=== PATIENT | female | born 1945 | race Caucasian/White ===

== ENCOUNTER 2017-04-07 12:44 | Emergency (ER) | payer MEDICARE ==
[2017-04-07] MEDS ORDERED: NS 0.9% 1000 ML* 1,000 ML IV ONE (13:33)
[2017-04-07 14:07] LABS: Hematocrit 41 % (35-47); Hemoglobin 13.6 g/dl (12.0-16.0); Mean Corpuscular HGB Conc 33 g/dl (31-36); Mean Corpuscular Hemoglobin 31 pg (27-31); Mean Corpuscular Volume 93 fL (80-97); Mean Platelet Volume 9 um3 (7.4-10.4); Red Blood Count 4.42 10^6/ul (4.0-5.4); Red Cell Distribution Width 14 % (10.5-15); White Blood Count 5.6 10^3/ul (3.5-10.8)
--- NOTE | 2017-04-07 14:16 | RAD ---
INDICATION: Cough and fever COMPARISON: September 25, 2013 TECHNIQUE: PA and lateral dual-energy views were obtained. FINDINGS: Bones/Soft Tissues: There are no acute bony findings. Cardiomediastinal: The cardiomediastinal silhouette is normal. Lungs: There are no infiltrates. Pleura: There are no pleural effusions. Other: None IMPRESSION: NO ACTIVE DISEASE
[2017-04-07 14:22] LABS: Albumin 3.7 g/dL (3.2-5.2); BUN/Creatinine Ratio 20.9 (8-20); C Reactive Protein 152.45 mg/L (< 5.00); Calcium 9.2 mg/dL (8.6-10.3); EGFR African American 78.4 (>60); EGFR Non-African American 60.9 (>60); Globulin 3.4 g/dL (2-4); Total Bilirubin 0.6 mg/dL (0.2-1.0); Total Protein 7.1 g/dL (6.4-8.9)
[2017-04-07 14:26] LABS: Potassium 4.1 mmol/L (3.5-5.0)
--- NOTE | 2017-04-07 15:18 | RAD ---
HISTORY: Headache COMPARISONS: None TECHNIQUE: Multiple contiguous axial CT scans were obtained of the head without intravenous contrast. FINDINGS: HEMORRHAGE/INFARCT: There is no hemorrhage or acute infarct. MASSES/SHIFT: There is no mass or shift. EXTRA-AXIAL SPACES: There are no extra-axial fluid collections. SULCI AND VENTRICLES: The sulci and ventricles are normal in size and position for the patient's stated age. CEREBRUM: There are no focal parenchymal abnormalities. BRAINSTEM: There are no focal parenchymal abnormalities. CEREBELLUM: There are no focal parenchymal abnormalities. VESSELS: There is calcification of the cavernous segments of the internal carotid arteries bilaterally. PARANASAL SINUSES: The paranasal sinuses are clear. ORBITS: The orbits are unremarkable. BONES AND SOFT TISSUE: No bone or soft tissue abnormalities are noted. OTHER: None IMPRESSION: NO ACUTE INTRACRANIAL PATHOLOGY.
--- NOTE | 2017-04-07 15:20 | RAD ---
HISTORY: Headache, neck pain COMPARISONS: None TECHNIQUE: Multiple contiguous axial CT scans were obtained of the cervical spine without intravenous contrast, with coronal and sagittal multiplanar reformations. FINDINGS: BRAIN: The visualized brain is unremarkable CENTRAL CANAL: Evaluation of the central canal is limited on CT technique; however, there is no obvious canalicular mass or epidural hemorrhage. ALIGNMENT: There is straightening of the cervical lordosis. VERTEBRAL BODIES: There is multilevel anterolateral marginal osteophyte formation with reactive end plate changes most pronounced at C4-C5 and C5-C6. JOINTS: There is multilevel uncovertebral and facet hypertrophy. 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 AXIAL IMAGES: C2-C3: There is no osseous neural foraminal narrowing or central canal stenosis. C3-C4: There is no osseous neural foraminal narrowing or central canal stenosis. C4-C5: There is no osseous neural foraminal narrowing or central canal stenosis. C5-C6: There is mild bilateral neural foraminal narrowing. There is no osseous central canal stenosis. C6-C7: There is bilateral facet hypertrophy. There is moderate bilateral neural foraminal narrowing. There is no significant central canal stenosis C7-T1: There is no osseous neural foraminal narrowing or central canal stenosis. SOFT TISSUES: The visualized soft tissues of the neck are unremarkable. The prevertebral fat stripe is preserved. OTHER: None. IMPRESSION: STRAIGHTENING OF THE CERVICAL LORDOSIS. DEGENERATIVE DISC DISEASE AND OSTEOARTHRITIS, MOST PRONOUNCED AT C5-C6 AND C6-C7.
[2017-04-07 15:36] LABS: Erythrocyte Sed Rate 45 mm/Hr (0-40)
[2017-04-07 16:41] LABS: Urine Bacteria Absent (Absent); Urine Bilirubin Negative (Negative); Urine Glucose Negative (Negative); Urine Nitrite Negative (Negative)
[2017-04-07 17:12] VITALS: BP 124/66
--- NOTE | 2017-04-07 17:25 | ED ---
Maria Esther Pozo Thomas, scribed for Bharti Jenkins MD on 04/07/17 at 1308 . Headache - HPI Summary HPI Summary: The pt is a 72 y/o F accompanied by her presenting to the ED c/o head and neck pain located at the back of her neck that began 5 days ago. She was seen two days ago at Urgent Care and diagnosed with fever and acute pyelonephritis. She was called by [facility] urgent care and referred to the ED because her urine culture was negative. Two days ago her temperature was 101.3. She is unsure when that fever began. She is afebrile in the ED. She denies a fever yesterday and today. She is still on Ciprofloxacin, which was prescribed 500 mg PO BID. Pt has a hx of sarcoidosis but has not been on steroids for years. The pt rates the pain 7/10. The pain is alleviated and alleviated by nothing. Pt does not have any temporal pain. Pt additionally c/o neck pain, fever (afebrile in the ED, denies a fever yesterday), dark urine, decreased appetite, chronic leg pain, back pain, and productive cough (clear). Pt denies myalgia, CP, hematuria, and dysuria. The pt denies Hx of a blood clot, CVA, TX, and chronic HERNADEZ. She is not on any daily medications. PMHx: HLD, UTI, osteopenia , sarcoidosis (10 years ago). PSHx: bronchoscopy, mediastinoscopy. SHx: former smoker, occasional drinking. FHx: CAD. She does not take medication for her sarcoidosis. - History Of Current Complaint Chief Complaint: EDHeadache Stated Complaint: HEADACHES/SENT FROM [facility] Time Seen by Provider: 04/07/17 13:01 Hx Obtained From: Patient, Family/[employer] - Onset/Duration: Started days ago - 5 days, Still Present Currently Pain Is: Current Pain Scale(0-10)= - 7 Timing: Constant Character: Dull Location of Headache: Occipital, Other: - back of head and into neck Aggravating Factor: Nothing Allevating Factors: Nothing Associated Signs And Symptoms: Fever - febrile 2 days ago, afebrile yesterday and in the ED, Neck Pain, Other (Noted In Comments) - POS: dark urine, decreased appetite, chronic leg pain, back pain, productive cough (clear); NEG: myalgia, CP, dysuria, hematuria - Allergies/Home Medications Allergies/Adverse Reactions: Allergies Allergy/AdvReac Type Severity Reaction Status Date / Time Sulfa Antibiotics Allergy Unknown Unknown Verified 09/25/13 14:12 Reaction Details PMH/Surg Hx/FS Hx/Imm Hx Previously Healthy: No - sarcoidosis Cardiovascular History: Reports: Hx Hypercholesterolemia Respiratory History: Reports: Other Respiratory Problems/Disorders - Hx sarcoidosis History: Reports: Other Problems/Disorders - Hx UTI Musculoskeletal History: Reports: Other Musculoskeletal History - Hx osteopenia - Surgical History Surgery Procedure, Year, and Place: bronchoscopy, mediastinoscopy, cholecystectomy Infectious Disease History: Denies: Traveled Outside the [place] in Last 30 Days - Family History Known Family History: Positive: Cardiac Disease - Social History Occupation: Retired Alcohol Use: Occasionally Substance Use Type: Reports: None Hx Tobacco Use: Yes Smoking Status (MU): Former Smoker Review of Systems Positive: Fever - febrile 2 days ago, afebrile yesterday and today, Other Eyes: Negative ENT: Negative Cardiovascular: Negative Negative: Chest Pain Positive: Cough - productive, clear Gastrointestinal: Negative Positive: other - POS: dark urine. Negative: dysuria, hematuria Positive: Other - POS: neck pain, chronic leg pain, back pain. Negative: Myalgia Skin: Negative Positive: Headache Psychological: Normal All Other Systems Reviewed And Are Negative: Yes Physical Exam Triage Information Reviewed: Yes Vital Signs On Initial Exam: Initial Vitals Temp Pulse Resp BP Pulse Ox 97.6 F 103 18 131/77 100 04/07/17 12:45 04/07/17 12:45 04/07/17 12:45 04/07/17 12:45 04/07/17 12:45 Vital Signs Reviewed: Yes Appearance: Positive: Well-Appearing, Well-Nourished, Pain Distress Skin: Positive: Warm, Skin Color Reflects Adequate Perfusion, Other - Non-toxic appearing Head/Face: Positive: Normal Head/Face Inspection Eyes: Positive: Conjunctiva Clear ENT: Positive: Normal ENT inspection, Other - Neck is supple, moving neck well, good chin to chest, no spinal tenderness Neck: Positive: Supple, No Lymphadenopathy, Tenderness @ - bilat paraspinous muscles Respiratory/Lung Sounds: Positive: Clear to Auscultation, Breath Sounds Present , Other - no resp distress Cardiovascular: Positive: RRR, Pulses are Symmetrical in both Upper and Lower Extremities, Other - Brisk capillary refill. Negative: Murmur Abdomen Description: Positive: Nontender, No Organomegaly, Soft. Negative: Distended, Guarding, Splenomegaly Bowel Sounds: Positive: Present Musculoskeletal: Positive: Strength/ROM Intact. Negative: Edema Left, Edema Right, Other - NEG: spinal tenderness Neurological: Positive: Sensory/Motor Intact, Alert, Oriented to Person Place, Time, CN Intact II-III, Speech Normal, Other - Muscle tone normal; no pain with [id number], neg Kernig's and Brudzinski. Negative: Facial Droop, Focal Deficit @, Slurred Speech Psychiatric: Positive: Normal Diagnostics - Vital Signs Vital Signs Temp Pulse Resp BP Pulse Ox 04/07/17 12:45 97.6 F 103 18 131/77 100 - Laboratory Result Diagrams: 04/07/17 13:50 04/07/17 13:50 Lab Statement: Any lab studies that have been ordered have been reviewed, and results considered in the medical decision making process. - Radiology CXR Xray Interpretation: No Acute Changes - no active disease Radiology Interpretation Completed By: Radiologist - CT CT Brain CT Interpretation: No Acute Changes - no acute intracranial pathology CT Interpretation Completed By: Radiologist CT C-Spine CT Interpretation: No Acute Changes - STRAIGHTENING OF THE CERVICAL LORDOSIS. DEGENERATIVE DISC DISEASE AND OSTEOARTHRITIS, MOST PRONOUNCED AT C5-C6 AND C6- C7. CT Interpretation Completed By: Radiologist Re-Evaluation - Re-Evaluation Second Eval Re-Evaluation Time: 16:03 Change: Improved - Feels fine, giving a urine, wants to go home First Re-Eval Re-Evaluation Time: 13:57 Change: Improved Comment: She notes a shooting pain in her neck that has gone a way. She now rates her pain 4/10, and she declines pain meds. Third Eval Re-Evaluation Time: 17:00 - wants to go home Change: Improved Headache Course/Dx - Course Assessment/Plan: The pt is a 72 y/o F accompanied by her presenting to the ED c/o head and neck pain located at the back of her neck that began 5 days ago. She was seen two days ago at [facility] and diagnosed with fever and acute pyelonephritis. She was called by [facility] urgent care and referred to the ED because her urine culture was negateve. Two days ago her temperature was 101.3. She is unsure when that fever began. She is afebrile in the ED. She denies a fever yesterday and today. She is still on Ciprofloxacin, which was prescribed 500 mg PO BID. The pt rates the pain 7/10. The pain is alleviated and alleviated by nothing. Pt additionally c/o neck pain, fever ( afebrile in the ED, denies a fever yesterday), dark urine, decreased appetite, chronic leg pain, back pain, and productive cough (clear). Pt denies myalgia, CP , hematuria, and dysuria. The pt denies Hx of a blood clot, CVA, TX, and chronic HERNADEZ. She is not on any daily medications. PMHx: HLD, UTI, osteopenia, sarcoidosis (10 years ago). PSHx: bronchoscopy, mediastinoscopy, cholecystectomy SHx: former smoker, occasional drinking. FHx: CAD. She does not take medication for her sarcoidosis. CT Brain shows no acute intracranial pathology. CT C-Spine shows STRAIGHTENING OF THE CERVICAL LORDOSIS. DEGENERATIVE DISC DISEASE AND OSTEOARTHRITIS, MOST PRONOUNCED AT C5-C6 AND C6- C7.CXR reveals no active disease. Bloodwork shows Plt 138, Lymph % 24.5, [place] % 10.0, APTT 25.9, Chloride 100, Bun/Creatinine 20.9, AST 91, ALT 67, AlkPhos 150 , CRP 152.45, ESR 45. UA shows specific gravity 1.004, blood 2+, squamous cells present. Feels fine, giving urine sample, wants to go home. Re-eval at 13:56 showed improvement. Re-eval at 16:03 was pt feels fine, giving urine sample, and wants to go home. Patients medication reviewed this visit. Allergies noted. In the ED course the pt was given IV fluids. Patient is diagnosed with cephalgia, cervical strain, abnormal liver function tests. The pt is diagnosed with high blood pressure without a diagnosis of hypertension. Patient will be discharged with follow up from [facility] referral or definite follow up in the [facility] office (former pt of Dr. Gee, could not get in. ) Advised f/u within a week. Pt is agreeable with this plan. - Diagnoses Provider Diagnoses: Cephalgia, Cervical strain, Abnormal liver function tests, Elevated BP without diagnosis of hypertension, Thrombocytopenia, Hematuria Discharge - Discharge Plan Condition: Stable Disposition: HOME Patient Education Materials: Cervical Strain (ED), General Headache (ED), Hematuria (ED) Referrals: [facility] PHYSICIAN REFERRAL [Outside] - 2 Days Additional Instructions: Your labs tests were normal except for your liver function tests which are mildly elevated, your platelet count which is slightly low, and your markers for inflammation which are elevated (CRP and ESR). We have given you a copy of your labs. You will need further follow up within the next week for these abnormalities, but they are not an emergency condition at this time. The CT of your brain and cervical spine (neck) and chest xray were unremarkable. We have given you copies of these also. You may stop the Cipro. There was microscopic blood in your urine, but no sign of infection. You will want to have follow up for that as well. If you develop fever or new or worsening symptoms, you should return to the ER. The documentation as recorded by the Maria Esther colon Thomas accurately reflects the service I personally performed and the decisions made by , Bharti Jenkins MD.
== END 2017-04-07 17:11 | disposition home or self-care (01) ==
LOC: ED 12:44
DX: S16.1XXA Strain of muscle, fascia and tendon at neck level, initial encounter (principal); R51 Headache; R79.89 Other specified abnormal findings of blood chemistry; R03.0 Elevated blood-pressure reading, without diagnosis of hypertension; D69.6 Thrombocytopenia, unspecified; R31.9 Hematuria, unspecified; E78.5 Hyperlipidemia, unspecified; E78.00 Pure hypercholesterolemia, unspecified; Z88.2 Allergy status to sulfonamides; Z87.891 Personal history of nicotine dependence; X58.XXXA Exposure to other specified factors, initial encounter; Y92.9 Unspecified place or not applicable
CPT/HCPCS: 36415; 70450; 71020; 72125; 80053; 81003; 81015; 83605; 85025; 85610; 85652; 85730; 86140; 87040; 99283